=== PATIENT | male | born 1995 | race Caucasian/White ===

== ENCOUNTER 2019-10-31 06:18 | Day surgery (SDC) | payer BC ==
[~2019-10-31] VITALS: Ht 175.3 cm; Wt 73.4 kg
[~2019-10-31 06:18] MED LIST: None per pt
[2019-10-31] MEDS ORDERED: BUPIVACAINE/PF 0.5% ONE (07:01)
[2019-10-31] MEDS ORDERED: LIDOCAINE 1%, 20ML ONE (07:02)
[2019-10-31 07:47] VITALS: BP 113/79
[2019-10-31] MEDS ORDERED: LACTATED RINGERS 1,000 ML IV SCH (07:50)
[2019-10-31] MEDS ORDERED: MIDAZOLAM 1 MG/ML, 2ML ONE (10:14)
[2019-10-31] MEDS ORDERED: FENTANYL PF 250 MCG/5ML ONE (10:15)
[2019-10-31] MEDS ORDERED: MEPERIDINE/PF 25MG/ML,1ML IVPush PRN (10:30)
[2019-10-31] MEDS ORDERED: HYDROmorphone 2 MG/ML, 1ML IVPush PRN (10:30)
[2019-10-31] MEDS ORDERED: MORPHINE SULFATE 4 MG/ML, 1ML IVPush PRN (10:30)
[2019-10-31] MEDS ORDERED: LABETALOL 5MG/ML, 20ML IV PRN (10:30)
[2019-10-31] MEDS ORDERED: ACETAMINOPHEN 325 MG TABLET PO PRN (10:30)
[2019-10-31] MEDS ORDERED: ONDANSETRON 2MG/ML, 2ML IV PRN (10:30)
[2019-10-31] MEDS ORDERED: OXYcodone 5 MG/5 ML ORAL.SOL UDC PO PRN (10:30)
[2019-10-31] MEDS ORDERED: hydrALAzine 20 MG/ML, 1ML IV PRN (10:30)
[2019-10-31] MEDS ORDERED: NEOSTIGMINE 1 MG/ML, 10ML ONE (10:33)
[2019-10-31] MEDS ORDERED: PROPOFOL 10 MG/ML, 20ML ONE (10:33)
[2019-10-31] MEDS ORDERED: ROCURONIUM 10MG/ML,5ML ONE (10:33)
[2019-10-31] MEDS ORDERED: CEFAZOLIN 1,000 MG ONE (10:33)
[2019-10-31] MEDS ORDERED: GLYCOPYRROLATE 0.2MG/1ML, 5ML ONE (10:33)
[2019-10-31] MEDS ORDERED: SUGAMMADEX 200 MG/2 ML IVPush ONE (11:39)
[2019-10-31] MEDS ORDERED: FENTANYL PF 100 MCG/2ML ONE ×3 (12:05→15:00)
[2019-10-31] MEDS ORDERED: MEPERIDINE/PF 25MG/ML,1ML ONE (12:05)
[2019-10-31] MEDS: FENTANYL PF 100 MCG/2ML IV PRN ×9 (12:15→15:00)
[2019-10-31] MEDS ORDERED: OXYcodone 5 MG/5 ML ORAL.SOL UDC ONE ×2 (12:18→17:13)
[2019-10-31] MEDS ORDERED: HYDROmorphone 2 MG/ML, 1ML ONE (14:47)
[2019-10-31] MEDS ORDERED: KETAMINE 10 MG/ML, 20ML IV ONE ×2 (15:00)
[2019-10-31] MEDS ORDERED: HYDROmorphone 1 MG/ML, 1ML INJ IM ONE (15:00)
[2019-10-31] MEDS ORDERED: HYDROmorphone 1 MG/ML, 1ML INJ IV ONE (15:30)
[2019-10-31] MEDS ORDERED: OXYcodone ORAL.CONC 20 MG/ML PO PRN (16:10)
[2019-10-31] MEDS ORDERED: OXYcodone IR 5MG TABLET ONE (17:25)
== END 2019-10-31 18:29 | disposition home or self-care (01) ==
LOC: OUT 06:18
PROVIDERS: ATTEND Orthopaedic Surgery
DX: S52.571A Other intraarticular fracture of lower end of right radius, initial encounter for closed fracture (principal); G56.01 Carpal tunnel syndrome, right upper limb; F17.200 Nicotine dependence, unspecified, uncomplicated; Z79.1 Long term (current) use of non-steroidal anti-inflammatories (NSAID); V86.56XA Driver of dirt bike or motor/cross bike injured in nontraffic accident, initial encounter; Y93.55 Activity, bike riding; Y92.89 Other specified places as the place of occurrence of the external cause; Y99.8 Other external cause status
CPT/HCPCS: 25608; 64721; C1713; C1762; J0690; J1170; J2175; J2250; J2704; J2710; J3010; J7120; 76000